=== PATIENT | male | born 1945 | race Caucasian/White ===

== ENCOUNTER 2021-04-28 01:32 | Day surgery (SDC) | payer MEDICARE, BC, SELFPAY ==
[2021-04-16 13:33] VITALS: BMI 24.7
--- NOTE | 2021-04-28 08:23 | WPDANESEPPF ---
Anes - Initial Pre Proc Eval Procedure: Operation Date: 04/28/21 12:00 Proposed Procedures p Colonoscopy - Anibal Olea MD Date/Time: 04/28/21 08:23 Surgeon: Anibal Olea MD Pre Op Diagnosis: positive cologuard R19.5/hx of colon [id number] Patient Data Age: 76 Gender: M Height: 1.85 m Weight: 85 kg Allergies Allergy/AdvReac Type Severity Reaction Status Date / Time No Known Allergies Allergy Verified 04/28/21 11:49 Home Medications Medication Instructions Recorded Confirmed Type hydrochlorothiazide 12.5 mg PO DAILY 04/16/21 04/16/21 History lisinopril 10 mg PO DAILY 04/16/21 04/16/21 History timolol maleate 1 drp OPHTHALMIC (EYE) DAILY 04/16/21 04/16/21 History travoprost [Travatan Z] 1 drp OPHTHALMIC (EYE) DAILY 04/16/21 04/16/21 History Patient hx anesthesia problems: none Family hx anesthesia problems: none [facility] Past Medical History Medical History (Updated 04/28/21 @ 08:23 by Varinder Pichardo DO) Hypertension Family History Family History (Updated 10/04/15 @ 14:39 by DOCTOR UNKNOWN) Sibling Cerebrovascular accident Family history of heart disease in male family member before age 55 Patient's sister is Patient's brother is Mother Family history of malignant neoplasm Patient's mother is Father Family history of heart disease in male family member before age 55 Patient's father is Social History Social History Smoking status: Never smoker Alcohol intake: never Substance use type: does not use Living arrangements: with family Gender identity (if verbalized by the patient): Male Spiritual care concerns: No Anes - Eval Final PreProcedure Day of Procedure 04/28/21 08:23 Patient weight: normal Heart: regular rate and rhythm Lungs: clear to auscultation and normal air movement Airway: Mallampati scale class II Neurological: alert and oriented Last oral intake: >/= 8 hours ASA classification: II Emergent: no Anesthetic plan: proceed Anesthesia type and monitoring: general GIVS and standard monitoring Informed Consent: The patient's anesthetic plan and its attendant risks and benefits were discussed with the patient/family/POA. Questions were solicited and answers provided to the satisfaction of the patient/family/POA.
[2021-04-28 11:51] VITALS: BP 142/73; PULSE 72; RESP 20; TEMP 36.4; O2SAT 99; BMI 25.0
[2021-04-28] MEDS: LACTATED RINGERS 1,000 ML 150 ML IV CONT (11:59)
--- NOTE | 2021-04-28 12:35 | PM.HPGS ---
History of Present Illness History of Present Illness Consent: Risks, benefits, and alternatives have been discussed and questions answered. Patient agrees to proceed with procedure. Chief complaint: positive cologuard R19.5/hx of colon [id number] Narrative: Brendon Castellano is a 76 year old male with colon polyps ~ 3 years ago, recently had + cologuard Review of Systems Constitutional: Constitutional: Denies headache(s) and Denies weakness Eyes: Eyes: Denies blurry vision ENT: Reports Normal hearing present, Denies headache(s) and Denies neck pain Cardiovascular: Cardiovascular: Denies chest pain and Denies dyspnea Respiratory: Respiratory: Denies dyspnea Gastrointestinal: Gastrointestinal: Reports no additional gastrointestinal complaints Genitourinary: Genitourinary: Denies dysuria Musculoskeletal: Musculoskeletal: Denies neck pain Integumentary/Breasts: Skin/Breast: Denies dry skin Neurologic: Reports Normal hearing present, Denies headache(s) and Denies weakness Psychiatric: Psychiatric: Denies anxiety Endocrine: Endocrine: Denies change in body appearance Hematologic/Lymphatic: Hematologic/Lymphatic: Denies easy bleeding Allergic/Immunologic: Allergic/Immunologic: Denies urticaria PMFSH Past Medical History Medical History (Updated 04/28/21 @ 12:35 by Anibal Olea MD) Adenomatous colon polyp Hypertension Family History Family History (Updated 10/04/15 @ 14:39 by DOCTOR UNKNOWN) Sibling Cerebrovascular accident Family history of heart disease in male family member before age 55 Patient's sister is Patient's brother is Mother Family history of malignant neoplasm Patient's mother is Father Family history of heart disease in male family member before age 55 Patient's father is Social History Social History Smoking status: Never smoker Alcohol intake: never Substance use type: does not use Living arrangements: with family Gender identity (if verbalized by the patient): Male Spiritual care concerns: No Meds Home Medications and Allergies Home Medications Medication Instructions Recorded Confirmed Type hydrochlorothiazide 12.5 mg PO DAILY 04/16/21 04/16/21 History lisinopril 10 mg PO DAILY 04/16/21 04/16/21 History timolol maleate 1 drp OPHTHALMIC (EYE) DAILY 04/16/21 04/16/21 History travoprost [Travatan Z] 1 drp OPHTHALMIC (EYE) DAILY 04/16/21 04/16/21 History Allergies Allergy/AdvReac Type Severity Reaction Status Date / Time No Known Allergies Allergy Verified 04/28/21 11:49 Vital Signs Vital Signs - 24 hr 04/28/21 11:51 Temperature 97.5 F L Pulse Rate 72 Respiratory Rate 20 Blood Pressure 142/73 H Pulse Oximetry 99 Exam Const: General: comfortable and no acute distress HENMT: General nose exam: Normal nares present Eyes: General: appearance normal, both eyes and all related structures Neck: Neck: no JVD Resp: Auscultation: clear to auscultation bilaterally Cardio: Rate: regular rate Rhythm: regular rhythm GI: Inspection: non-distended GI Palp: Yes Soft to palpation Skin: General skin exam: normal color Neuro: General: gait normal Speech: normal speech Extrem: General: normal to inspection Psych: Mental Status: mental status grossly normal Assessment and Plan Assessment and plan (1) Adenomatous colon polyp: Code(s): D12.6 - Benign neoplasm of colon, unspecified Status: Acute Assessment and Plan: colonoscopy
[2021-04-28 13:00] VITALS: BP 96/59; PULSE 58; RESP 11; O2SAT 95
[2021-04-28 13:10] VITALS: BP 102/56; PULSE 58; RESP 14; O2SAT 100
== END 2021-04-28 13:42 | disposition home or self-care (01) ==
PROVIDERS: PCP Internal Medicine; Visit Provider Internal Medicine Gastroenterology
PROC: 0DJD8ZZ Inspection of Lower Intestinal Tract, Via Natural or Artificial Opening Endoscopic (ICD-10-PCS; CPT 45378; principal; 2021-04-28 12:00)
DX: R19.5 Other fecal abnormalities (principal); K57.30 Diverticulosis of large intestine without perforation or abscess without bleeding; K64.8 Other hemorrhoids; D12.3 Benign neoplasm of transverse colon; I10 Essential (primary) hypertension
CPT/HCPCS: 45385; 88305; J2704; J7120